=== PATIENT | female | born 1990 ===

== ENCOUNTER 2022-07-25 07:30 | Inpatient (IN) | payer OTHER ==
[~2022-07-25] VITALS: Ht 157.5 cm; Wt 52.2 kg
[2022-07-25] MEDS ORDERED: MULTI VITAMIN1 EACH PO (09:42)
[2022-07-25] MEDS ORDERED: DEPO-PROVE150 MG/1 M IM (09:43)
[2022-07-28] MEDS ORDERED: Tylenol #3 PO (08:43)
[2022-07-28] MEDS ORDERED: NAPR500T14 PO (08:43)
== END 2022-07-28 11:45 | disposition home or self-care (01) | DRG 743 ==
LOC: OB/GYN 07-27 07:30 → O/R 07-27 07:43 → OB/GYN 07-27 12:45
PROVIDERS: ADMIT Obstetrics & Gynecology; ATTEND Obstetrics & Gynecology
PROC: 0UT77ZZ Resection of Bilateral Fallopian Tubes, Via Natural or Artificial Opening (ICD-10-PCS; 2022-07-27)
PROC: 0JQC0ZZ Repair Pelvic Region Subcutaneous Tissue and Fascia, Open Approach (ICD-10-PCS; 2022-07-27)
PROC: 0USG0ZZ Reposition Vagina, Open Approach (ICD-10-PCS; 2022-07-27)
PROC: 0TJB8ZZ Inspection of Bladder, Via Natural or Artificial Opening Endoscopic (ICD-10-PCS; 2022-07-27)
PROC: 0UT97ZZ Resection of Uterus, Via Natural or Artificial Opening (ICD-10-PCS; principal; 2022-07-27 12:45)
DX: D25.1 Intramural leiomyoma of uterus (principal); D25.0 Submucous leiomyoma of uterus; N84.1 Polyp of cervix uteri; Z20.822 Contact with and (suspected) exposure to COVID-19